=== PATIENT | female | born 1960 | race Caucasian/White ===

== ENCOUNTER 2021-03-27 15:41 | Inpatient (IN) | payer BC ==
[~2021-03-27] VITALS: Ht 167.6 cm; Wt 136.3 kg
[2021-03-27] VITALS (12 sets, daily range): BP systolic 71–114; BP diastolic 43–59; PULSE 84–113; TEMP 97.5–99
[~2021-03-27 15:41] MED LIST: ALLEGRA ALLERG180 MG PO; ALLEGRA D 12 HO1 TER PO; CIPRO 500MG TA500 MG PO; CLEOCIN HC150 MG/CAP PO; GLUCOPHAGE1000 MG; IMODIUM 2MG CAPS2 MG PO; LEVOXYL0.15 MG PO; LORTAB 5/500 501 TAB PO; MOBIC15 MG PO; NORCO 325 MG-51 TAB PO; PROVENTIL0.09 MG/A1 IH; PROZAC40 MG PO; SINGULAIR10 MG PO; SYNTHROID0.075 MG PO; TOPROL XL 50MG50 MG PO; TYLENOL 325MG325 MG PO
[2021-03-27] MEDS ORDERED: SYNTHROID 0.10.15 MG PO (17:24)
[2021-03-27] MEDS ORDERED: GLUCOPHAGE XR500 M1 PO (17:25)
[2021-03-27] MEDS ORDERED: DITROPAN 5MG TAB5 MG PO (17:26)
[2021-03-27] MEDS ORDERED: SINGULAIR 110 MG/TAB PO (17:26)
[2021-03-27] MEDS ORDERED: PRIL40 PO (17:27)
--- NOTE | 2021-03-27 17:31 | NUR ---
PATIENT SLEEPING ON/OFF SINCE ARRIVAL. DR HUNT INTO TALK WITH PATIENT AND HER .
--- NOTE | 2021-03-27 17:38 | NUR ---
MOVED TO PACU TO WAIT FOR SURGERY
--- NOTE | 2021-03-27 20:15 | NUR ---
Arrived to room 357 via bed from PACU. A&Ox3-very drowsy-falling asleep during conversation. Denies pain/nausea/shortness of breath. VS stable. O2@2L/NC. at bedside. Provided sandwich box but fell asleep. Has tolerated some ice chips. Call light in reach. Will monitor.
--- NOTE | 2021-03-27 21:50 | NUR ---
Dr Medellin notified of hypotension 70s/40s and tachycardia. New orders received and initiated. Lab notified of STAT orders. Call light in reach. Will monitor.
[2021-03-27 22:36] LABS: HEMATOCRIT 43.5 % (37.0-47.0); HEMOGLOBIN 13.7 g/dl (12.5-16.0); MEAN CELL VOLUME 92 fl (80.0-100.0); MEAN CORPUSCULAR HEMOGLOBIN 29 pg (27.0-31.0); MEAN CORPUSCULAR HGB CONC 32 g/dl (33.0-37.0); MEAN PLATELET VOLUME 10.1 fl (7.4-10.4); PLATELET COUNT 100 K/mm3 (130-400); RED BLOOD COUNT 4.75 M/mm3 (4.10-5.30); REDCELL DISTRIBUTION WIDTH-CV 14.9 % (11.5-14.5)
[2021-03-27 22:48] LABS: CALCIUM 8.6 mg/dL (8.4-10.2); CREATININE, serum 1.58 (0.52-1.25); POTASSIUM 3.3 mmol/L (3.4-5.0)
[2021-03-27 23:03] LABS: BAND 27 % (0-10); HYPOCHROMIA 2+; LYMPHOCYTE 12 % (20.0-51.0); METAMYELOCYTE 2 % (0-0); NEUTROPHILS 56 % (42.0-75.2); NUCLEATED RED BLOOD CELL 1 (0-6); PLATELET ESTIMATE DECREASED (NORMAL)
[2021-03-28] VITALS (537 sets, daily range): BP systolic 77–121; BP diastolic 53–75; PULSE 79–116; TEMP 97.6–99.3; O2SAT 65–100
--- NOTE | 2021-03-28 00:09 | NUR ---
Dr Medellin updated on hypotension/tachycardia and increased O2 needs. New orders received to transfer to ICU and consult hospitalist.
--- NOTE | 2021-03-28 00:12 | NUR ---
Hospitalist notified of new consult.
--- NOTE | 2021-03-28 00:42 | NUR ---
Pt arrived to ICU room 7 via bed with LIZZIE Mckeon. Pt transferred from the floor bed to the ICU bed with the assistance of 4. Pt oriented to room and call light system. Pt is resting quietly in the bed at this time and she denies further needs. Call light within reach.
--- NOTE | 2021-03-28 00:45 | NUR ---
Report given to LIZZIE Sotelo. Transferred to ICU room 7. has been notified.
[2021-03-28 03:45] LABS: HEMATOCRIT 41.3 % (37.0-47.0); HEMOGLOBIN 13.1 g/dl (12.5-16.0); MEAN CELL VOLUME 92 fl (80.0-100.0); MEAN CORPUSCULAR HEMOGLOBIN 29 pg (27.0-31.0); MEAN CORPUSCULAR HGB CONC 32 g/dl (33.0-37.0); MEAN PLATELET VOLUME 10.8 fl (7.4-10.4); PLATELET COUNT 104 K/mm3 (130-400); RED BLOOD COUNT 4.48 M/mm3 (4.10-5.30); REDCELL DISTRIBUTION WIDTH-CV 15.2 % (11.5-14.5)
[2021-03-28 03:52] LABS: CALCIUM 8.3 mg/dL (8.4-10.2); POTASSIUM 3.3 mmol/L (3.4-5.0)
[2021-03-28 04:25] LABS: ANISOCYTOSIS 1+; BAND 37 % (0-10); HYPOCHROMIA 2+; LYMPHOCYTE 5 % (20.0-51.0); METAMYELOCYTE 1 % (0-0); NEUTROPHILS 54 % (42.0-75.2); PLATELET ESTIMATE DECREASED (NORMAL)
[2021-03-28 05:43] LABS: COLLECTION METHOD CLEAN CATCH
[2021-03-28 06:02] LABS: MUCOUS Present /lpf; PH 5 (5-8); URINE APPEARANCE Turbid; URINE BACTERIA None Seen /hpf; URINE BILIRUBIN Negative (NEGATIVE); URINE BLOOD 3+ (NEGATIVE); URINE COLOR Amber; URINE GLUCOSE Negative (NEGATIVE); URINE KETONE Negative (NEGATIVE); URINE LEUKOCYTE ESTERASE Negative (NEGATIVE); URINE NITRATE Negative (NEGATIVE); URINE PROTEIN(semi-quant) 2+ (NEGATIVE); URINE RBC >50 /hpf; URINE UROBILINOGEN Negative (NEGATIVE)
--- NOTE | 2021-03-28 07:30 | NUR ---
Bedside shift report given to LIZZIE Rico.
[2021-03-28 11:02] LABS: HEMATOCRIT 40.4 % (37.0-47.0); HEMOGLOBIN 12.9 g/dl (12.5-16.0); MEAN CELL VOLUME 92 fl (80.0-100.0); MEAN CORPUSCULAR HEMOGLOBIN 30 pg (27.0-31.0); MEAN CORPUSCULAR HGB CONC 32 g/dl (33.0-37.0); PLATELET COUNT 123 K/mm3 (130-400); RED BLOOD COUNT 4.38 M/mm3 (4.10-5.30); REDCELL DISTRIBUTION WIDTH-CV 15.6 % (11.5-14.5)
[2021-03-28 11:39] LABS: BAND 38 % (0-10); LYMPHOCYTE 5 % (20.0-51.0); METAMYELOCYTE 1 % (0-0); NEUTROPHILS 52 % (42.0-75.2)
[2021-03-28 11:40] LABS: ANISOCYTOSIS 1+; PLATELET ESTIMATE DECREASED (NORMAL)
--- NOTE | 2021-03-28 22:22 | NUR ---
PATIENT VISITING WITH DAUGTHER, DURING ASESSMEN, DENIES PAIN, PURSNEHAL AND WANDA REFUSED AT THIS TIME, PATIENT WANTS TO GET UP
[2021-03-29] VITALS (42 sets, daily range): BP systolic 101–121; BP diastolic 58–73; PULSE 76–86; TEMP 97.7–98.1; O2SAT 82–97
[2021-03-29 05:30] LABS: HEMATOCRIT 38.1 % (37.0-47.0); MEAN CELL VOLUME 92 fl (80.0-100.0); MEAN CORPUSCULAR HEMOGLOBIN 29 pg (27.0-31.0); MEAN CORPUSCULAR HGB CONC 32 g/dl (33.0-37.0); MEAN PLATELET VOLUME 11.7 fl (7.4-10.4); PLATELET COUNT 90 K/mm3 (130-400); RED BLOOD COUNT 4.15 M/mm3 (4.10-5.30); REDCELL DISTRIBUTION WIDTH-CV 15.5 % (11.5-14.5)
[2021-03-29 05:37] LABS: CREATININE, serum 1.84 (0.52-1.25); POTASSIUM 3.6 mmol/L (3.4-5.0)
[2021-03-29 05:49] LABS: ANISOCYTOSIS 1+; BAND 46 % (0-10); EOSINOPHIL 1 % (0-4); HYPOCHROMIA 2+; LYMPHOCYTE 4 % (20.0-51.0); METAMYELOCYTE 1 % (0-0); NEUTROPHILS 42 % (42.0-75.2); PLATELET ESTIMATE DECREASED (NORMAL)
--- NOTE | 2021-03-29 09:41 | NUR ---
PT is tired this morning. Wakes for assessment and morning medications then falls quickly back to sleep. PT report given to Bonilla 09Lucia. PT up from bed to bedside commode with assistance of one. PT does have an incontinent episode. PT cleaned up and then moved to wheelchair for transport to room 351. PT able to move from wheelchair to bed without incident. PT appears comfortable. Call light in reach. LIZZIE Crystal assumes care of PT at this time.
--- NOTE | 2021-03-29 11:19 | NUR ---
[facility] met with patient to discuss discharge planning. Patient lives in [place] with her , Hugo (ph#[phone]) and sees Dr. Acuna for primary care. Patient obtains medications from the [facility] with no difficulties. Patient uses a CPAP and reports independence with ADLS. Patient does not have Advance Directives in EMR but reports she has DPOA-HC completed which designates her . Patient plans to return home upon discharge. Discharge Plan: Home
--- NOTE | 2021-03-29 11:55 | NUR ---
First visit from the cellular equipment repairer. No needs right now.
--- NOTE | 2021-03-29 23:06 | NUR ---
PT SLEEPING UPON ENTRY TO DO ASSESMENT. DENIES ANY SOA, PAIN OR DIZZY. NO NAUSEA. IV FLUIDS RUNNING ALONG W ZOSYN. POC DISCUSSED. PM MEDS. CALL LIGHT WI REACH. NEEDS MET.
[2021-03-30 00:01] VITALS: BP 105/49; PULSE 73; TEMP 97.8
[2021-03-30 04:29] VITALS: BP 99/52; PULSE 60; TEMP 97.9
--- NOTE | 2021-03-30 05:15 | NUR ---
RESTED THROUGH THE NIGHT WITHOUT INCIDENT. NEEDS MET.
[2021-03-30 07:14] LABS: HEMOGLOBIN 11.1 g/dl (12.5-16.0); MEAN CELL VOLUME 93 fl (80.0-100.0); MEAN CORPUSCULAR HEMOGLOBIN 29 pg (27.0-31.0); MEAN CORPUSCULAR HGB CONC 32 g/dl (33.0-37.0); MEAN PLATELET VOLUME 11.8 fl (7.4-10.4); PLATELET COUNT 98 K/mm3 (130-400); RED BLOOD COUNT 3.77 M/mm3 (4.10-5.30); REDCELL DISTRIBUTION WIDTH-CV 15.7 % (11.5-14.5)
[2021-03-30 07:15] LABS: HEMATOCRIT 34.9 % (37.0-47.0)
[2021-03-30 07:30] LABS: CALCIUM 8.3 mg/dL (8.4-10.2); CREATININE, serum 1.36 (0.52-1.25); POTASSIUM 3.4 mmol/L (3.4-5.0)
[2021-03-30 07:42] LABS: BAND 17 % (0-10); BURR CELLS 1+; LYMPHOCYTE 11 % (20.0-51.0); NEUTROPHILS 71 % (42.0-75.2); PLATELET ESTIMATE DECREASED (NORMAL)
[2021-03-30 08:34] VITALS: BP 102/68; PULSE 71; TEMP 98.3
[2021-03-30 12:09] VITALS: BP 105/62; PULSE 72; TEMP 98.5
--- NOTE | 2021-03-30 14:44 | NUR ---
PT CURRENTLY INFUSING ANTIBIOTICS VIA RIGHT IJ, PT CONTINUES TO REFUSE PHYSICAL THERAPY, PT ONLY AGREED TO BED EXERCISES. PT REMAINS NON-COMPLIANT WITH SCD USE. THIS NURSE WILL CONTINUE TO HELP ENCOURAGE PT TO AMBULATE AND/OR WEAR SCD. THIS NURSE CONTACTED PT'S TO UPDATE OF STATUS. PT CURRENTLY EXPRESSES NO ADDITIONAL NEEDS AT THIS TIME, CALL LIGHT WITHIN REACH.
[2021-03-30 16:32] VITALS: BP 119/63; PULSE 81; TEMP 98.6
[2021-03-30 22:36] VITALS: BP 119/73; PULSE 82; TEMP 99
--- NOTE | 2021-03-30 23:44 | NUR ---
Patient assessed around 2054. Alert and oriented, and able to make needs known. Reported level 7 pain to back. Given PRN Percocet as requested for pain. TLC to right IJ with fluids running per orders. Patient denies having pain and discomfort during assessement. At that time, RT had just switched her to CPAP. RT did state that her oxygen was low and needed to have oxygen on at 2 L/min via NC if CPAP came off. LS CTA in upper lobes, diminished in lower. Respirations even and unlaored. HRR. Capillary refill less than 3 seconds. Non-tenting skin turgor. BSAx4. 1+ edema BLE. Voices no questions, needs, or concerns at this time. Resting in bed with call light within reach.
[2021-03-31 04:37] VITALS: BP 123/70; PULSE 58; TEMP 98
--- NOTE | 2021-03-31 05:56 | NUR ---
Patient has received PRN Percocet twice this shift. Has been wearing CPAP throughout the night. Voices no further questions, needs, or concerns at this time. Resting in bed with call light within reach.
[2021-03-31 07:08] LABS: BASO # 0.1 (0.0-0.2); BASO % 0.5 % (0.0-2.0); EOS # 0.3 (0.0-0.7); EOS % 2.4 % (0-4.0); GRAN # 9.4 (1.4-6.5); GRAN % 76.7 % (42.2-75.2); HEMOGLOBIN 11.5 g/dl (12.5-16.0); LYMPH # 1.7 (1.2-3.4); LYMPH % 13.9 % (20.0-51.0); MEAN CELL VOLUME 91 fl (80.0-100.0); MEAN CORPUSCULAR HEMOGLOBIN 29 pg (27.0-31.0); MEAN CORPUSCULAR HGB CONC 32 g/dl (33.0-37.0); MEAN PLATELET VOLUME 12.2 fl (7.4-10.4); MONO # 0.7 (0.1-0.6); MONO % 5.6 % (1.7-9.3); PLATELET COUNT 113 K/mm3 (130-400); RED BLOOD COUNT 3.96 M/mm3 (4.10-5.30); REDCELL DISTRIBUTION WIDTH-CV 15.6 % (11.5-14.5)
[2021-03-31 07:14] LABS: HEMATOCRIT 36.2 % (37.0-47.0)
[2021-03-31 07:27] LABS: CALCIUM 8.6 mg/dL (8.4-10.2); CREATININE, serum 1.03 (0.52-1.25); MAGNESIUM 1.9 mg/dL (1.6-2.3); POTASSIUM 3.8 mmol/L (3.4-5.0)
[2021-03-31 07:52] VITALS: BP 124/92; PULSE 52; TEMP 98.5
[2021-03-31] MEDS ORDERED: OMNICEF 300MG300 MG PO (09:27)
[2021-03-31 11:44] VITALS: BP 120/80; PULSE 74; TEMP 98.3
--- NOTE | 2021-04-07 15:03 | NUR ---
(late entry 03/31) The patient discharge home with [facility], [place]. Discharge orders were faxed. HEMAL contacted Kassandra with [facility] states they have the patient for services.
== END 2021-03-31 13:51 | disposition home or self-care (01) | DRG 853 ==
LOC: SDCO 15:41 → MEDICAL 18:08 → INPTSU 18:08 → ICU 18:08 → SDCO 19:15 → MEDICAL 20:15 → ICU 03-28 00:54 → MEDICAL 03-29 09:54
PROVIDERS: Family Medicine; Physician Assistant; Student in an Organized Health Care Education/Training Program; ADMIT Urology
PROC: 0T768DZ Dilation of Right Ureter with Intraluminal Device, Via Natural or Artificial Opening Endoscopic (ICD-10-PCS; principal; 2021-03-27 19:15)
PROC: 0TC68ZZ Extirpation of Matter from Right Ureter, Via Natural or Artificial Opening Endoscopic (ICD-10-PCS; 2021-03-27 19:15)
PROC: BT1B1ZZ Fluoroscopy of Bladder and Urethra using Low Osmolar Contrast (ICD-10-PCS; 2021-03-27 19:15)
PROC: 02HV33Z Insertion of Infusion Device into Superior Vena Cava, Percutaneous Approach (ICD-10-PCS; 2021-03-28)
DX: A41.50 Gram-negative sepsis, unspecified (principal); R65.21 Severe sepsis with septic shock; J96.01 Acute respiratory failure with hypoxia; E87.2 Acidosis; N17.9 Acute kidney failure, unspecified; Z68.43 Body mass index [BMI] 50.0-59.9, adult; E87.6 Hypokalemia; E83.42 Hypomagnesemia; K21.9 Gastro-esophageal reflux disease without esophagitis; E03.9 Hypothyroidism, unspecified; F32.9 Major depressive disorder, single episode, unspecified; E11.9 Type 2 diabetes mellitus without complications; Z96.651 Presence of right artificial knee joint; R32 Unspecified urinary incontinence; E66.01 Morbid (severe) obesity due to excess calories; Z90.710 Acquired absence of both cervix and uterus; Z90.49 Acquired absence of other specified parts of digestive tract; Z87.442 Personal history of urinary calculi; Z87.898 Personal history of other specified conditions
CPT/HCPCS: OP; 99223; 99232-AI; 99233-AI; C1769; C1894; C2617; G0378; J0690; J0696; J1644; J2370; J2543; J2704; J2765; J3010; J3475; J3480; J7030; J7050; J7060; J7120; Q9967